=== PATIENT | male | born 1980 | race Caucasian/White ===

== ENCOUNTER 2019-03-18 11:17 | Emergency (ER) | payer SELFPAY, OTHER ==
[2019-03-18] MEDS: CEFTRIAXONE 250 MG INJ IM ×2 (12:31→12:58)
[2019-03-18] MEDS: LIDOCAINE 1% (MPF) 5 ML VIAL INJ ×2 (12:31→12:58)
[2019-03-18] MEDS: AZITHROMYCIN 500 MG TAB PO ×2 (12:31→12:58)
[2019-03-18 12:47] LABS: URINE BLOOD (Dip) POC 3+ (NEGATIVE); URINE GLUCOSE (Dip) POC Negative (NEGATIVE); URINE KETONES (Dip) POC Negative (NEGATIVE); URINE LEUKOCYTE EST (Dip) POC 3+ (NEGATIVE); URINE NITRITE (Dip) POC Negative (NEGATIVE); URINE TOTAL PROTEIN POC 1+ (NEGATIVE)
== END 2019-03-18 13:12 | disposition left against medical advice (07) ==
LOC: FTE 11:17
DX: R30.0 Dysuria (principal)
CPT/HCPCS: 81003; 87086; 96372; 99284-25